=== PATIENT | male | born 1970 | race Caucasian/White ===

== ENCOUNTER 2017-06-19 13:02 | Outpatient (RCR) | payer OTHER | END 2017-07-10 10:46 | disposition home or self-care (01) | LOC: WSOH 13:02 | DX: S29.012A Strain of muscle and tendon of back wall of thorax, initial encounter (principal); R20.2 Paresthesia of skin; R20.0 Anesthesia of skin; X50.0XXA Overexertion from strenuous movement or load, initial encounter; Y99.0 Civilian activity done for income or pay; Z88.0 Allergy status to penicillin ==

== ENCOUNTER 2017-07-30 13:09 | Outpatient (RCR) | payer OTHER | END 2017-08-03 09:09 | disposition home or self-care (01) | LOC: WSOH 13:09 | DX: S29.012D Strain of muscle and tendon of back wall of thorax, subsequent encounter (principal); X50.0XXD Overexertion from strenuous movement or load, subsequent encounter; Y99.0 Civilian activity done for income or pay ==